=== PATIENT | male | born 1970 | race Caucasian/White ===

== ENCOUNTER 2023-11-05 14:41 | Observation (INO) | payer OTHER ==
[2023-11-05 15:15] VITALS: BMI 21.1
[2023-11-05] MEDS ORDERED: ACETAMINOPHEN 1000 MG/100 ML BAG IVPB ONE (16:56)
[2023-11-05] MEDS ORDERED: LACTATED RINGERS SOLUTION 1000 ML INFUS.BAG IV ONE (16:56)
[2023-11-05] MEDS ORDERED: AZITHROMYCIN IVPB 500 MG in DEXTROSE 5%-WATER - 250 ML IVPB ONE (17:17)
[2023-11-05] MEDS ORDERED: CEFTRIAXONE 1,000 MG in DEXTROSE 5%-WATER - 50 ML IVPB ONE (17:17)
[2023-11-05] MEDS ORDERED: AZITHROMYCIN IVPB 500 MG/250 ML BAG IVPB ONE (17:48)
[2023-11-05] MEDS ORDERED: ACETAMINOPHEN INJECTION 100 ML IVPB ONE (17:48)
[2023-11-05] MEDS ORDERED: CEFTRIAXONE 1 GM/50 ML BAG ONE (17:48)
[2023-11-05 18:05] LABS: INR 1.48 (0.83-1.09); PROTHROMBIN TIME (PATIENT) 17.1 SEC (9.7-13.0)
[2023-11-05 18:06] LABS: BASO % 0.1 % (0-2.0); HEMATOCRIT 38.8 % (35.4-49); HEMOGLOBIN 12.9 GM/dL (11.7-16.9); LYMPH % 14.2 % (8-40); MCH 30.1 pg (25.7-33.7); MCHC 33.3 g/dl (32.0-35.9); MEAN CELL VOLUME 90.4 fl (80-96); MEAN PLT VOLUME 8.4 fl (7.5-11.1); MONO % 7.7 % (3.8-10.2); PLATELET COUNT 199 10^3/uL (134-434); RBC 4.29 M/mm3 (4.00-5.60); RDW 13.8 % (11.9-15.9); WHITE BLOOD COUNT 5.9 K/mm3 (4.0-10.0)
[2023-11-05 18:08] LABS: ACTIVATED PTT 36.1 SECONDS (25.2-36.5)
[2023-11-05 18:12] LABS: POTASSIUM 3.7 mmol/L (3.5-5.1)
[2023-11-05 18:14] LABS: ALBUMIN 3.7 g/dl (3.4-5.0); BLOOD UREA NITROGEN 21.7 mg/dL (7-18); CALCIUM 8.8 mg/dL (8.5-10.1)
[2023-11-05 18:17] LABS: CREATININE 0.9 mg/dL (0.55-1.3)
[2023-11-05 18:19] LABS: BILIRUBIN,TOTAL 0.6 mg/dL (0.2-1)
[2023-11-05] MEDS ORDERED: VANCOMYCIN 1,000 MG in DEXTROSE 5%-WATER - 250 ML IVPB ONE (18:38)
[2023-11-05] MEDS ORDERED: VANCOMYCIN 1 GRAM (PRE-DOCKED) 1,000 MG/250 ML BAG IVPB ONE (18:43)
[2023-11-05 18:47] LABS: EPI CELLS 8 /uL (0-25.1); HYALINE CASTS 0 /uL (0-3.1); PH,URINE 5.5 (5.0-8.0); URINE APPEARANCE CLEAR; URINE BACTERIA 7 /uL (0-1359); URINE BILIRUBIN NEGATIVE (NEGATIVE); URINE COLOR DK YELLOW; URINE GLUCOSE (UA) NEGATIVE (NEGATIVE); URINE KETONE NEGATIVE (NEGATIVE); URINE LEUK ESTERASE NEGATIVE (NEGATIVE); URINE NITRITE NEGATIVE (NEGATIVE); URINE PROTEIN 3+ (NEGATIVE); URINE WBC 11 /uL (0-25.8)
[2023-11-05 19:28] LABS: URINE RBC 40.4 /uL (0-23.9); YEAST NONE SEEN (NEGATIVE)
[2023-11-05] MEDS ORDERED: ALBUTEROL SO4 2.5/IPRATROPIUM 0.5 INH SOL 3 ML VIAL.NEB. NEB ONE ×2 (21:26→23:40)
[2023-11-05] MEDS ORDERED: DEXTROSE 5%-LACTATED RINGERS 1,000 ML IV SCH (22:15)
[2023-11-05] MEDS ORDERED: predniSONE 20 MG TABLET (UD) PO ONE (22:46)
[2023-11-05] MEDS: DEXTROSE 5%-NORMAL SALINE 1,000 ML IV SCH (23:36)
[2023-11-05] MEDS: ALBUTEROL SO4 2.5/IPRATROPIUM 0.5 INH SOL 3 ML VIAL.NEB. NEB SCH (23:36)
[2023-11-05] MEDS: OSELTAMIVIR PHOSPHATE 75 MG CAPSULE PO SCH (23:36)
[2023-11-05] MEDS ORDERED: predniSONE 20 MG TABLET (UD) ONE (23:40)
[2023-11-05] MEDS ORDERED: OSELTAMIVIR PHOSPHATE 75 MG CAPSULE ONE (23:41)
[2023-11-06] MEDS ORDERED: ALBUTEROL SO4 HFA INHALER IH ONE (00:17)
[2023-11-06] MEDS ORDERED: ALBUTEROL SO4 2.5/IPRATROPIUM 0.5 INH SOL 3 ML VIAL.NEB. NEB ONE ×3 (02:37→20:10)
[2023-11-06] MEDS: ALBUTEROL SO4 2.5/IPRATROPIUM 0.5 INH SOL 3 ML VIAL.NEB. NEB SCH ×5 (04:40→20:09)
[2023-11-06 08:24] LABS: HEMATOCRIT 29.7 % (35.4-49); HEMOGLOBIN 10.3 GM/dL (11.7-16.9); MCH 31.2 pg (25.7-33.7); MCHC 34.6 g/dl (32.0-35.9); MEAN CELL VOLUME 90.2 fl (80-96); MEAN PLT VOLUME 8.1 fl (7.5-11.1); PLATELET COUNT 156 10^3/uL (134-434); RDW 13.7 % (11.9-15.9); WHITE BLOOD COUNT 4.4 K/mm3 (4.0-10.0)
[2023-11-06 08:36] LABS: POTASSIUM 3.9 mmol/L (3.5-5.1)
[2023-11-06 08:38] LABS: CALCIUM 8.3 mg/dL (8.5-10.1)
[2023-11-06 08:39] LABS: BLOOD UREA NITROGEN 21.2 mg/dL (7-18)
[2023-11-06 08:41] LABS: MAGNESIUM 1.9 mg/dL (1.8-2.4)
[2023-11-06 08:42] LABS: CREATININE 0.7 mg/dL (0.55-1.3)
[2023-11-06 08:44] LABS: BILIRUBIN,TOTAL 0.4 mg/dL (0.2-1); TOT PROT 6.2 g/dl (6.4-8.2)
[2023-11-06 08:58] LABS: ALBUMIN 2.7 g/dl (3.4-5.0)
[2023-11-06] MEDS ORDERED: methaDONE HCL 40 MG DISPERSABLE TABLET ONE (09:29)
[2023-11-06] MEDS ORDERED: methaDONE HCL 10 MG TABLET ONE (09:30)
[2023-11-06] MEDS: ENOXAPARIN NA (PORCINE) 40 MG/0.4 ML DISP.SYRIN SQ SCH ×2 (11:00→11:10)
[2023-11-06] MEDS: OSELTAMIVIR PHOSPHATE 75 MG CAPSULE PO SCH ×2 (11:00→22:58)
[2023-11-06] MEDS: predniSONE 20 MG TABLET (UD) PO SCH (11:00)
[2023-11-06] MEDS ORDERED: predniSONE 20 MG TABLET (UD) ONE (11:02)
[2023-11-06] MEDS ORDERED: ALBUTEROL SO4 HFA INHALER IH PRN (11:10)
[2023-11-06] MEDS ORDERED: AZITHROMYCIN IVPB 250 MG in DEXTROSE 5%-WATER - 250 ML IVPB SCH (17:30)
[2023-11-06] MEDS: CEFTRIAXONE 1 GM in DEXTROSE 5%-WATER - 50 ML IVPB SCH (17:32)
[2023-11-06] MEDS: DOXYCYCLINE HYCLATE 100 MG CAPSULE PO SCH (17:52)
[2023-11-06] MEDS ORDERED: DOXYCYCLINE HYCLATE 100 MG CAPSULE PO ONE (17:55)
[2023-11-06] MEDS ORDERED: OSELTAMIVIR PHOSPHATE 75 MG CAPSULE ONE (22:43)
[2023-11-07] MEDS: DEXTROSE 5%-NORMAL SALINE 1,000 ML IV SCH (00:26)
[2023-11-07] MEDS ORDERED: ALBUTEROL SO4 2.5/IPRATROPIUM 0.5 INH SOL 3 ML VIAL.NEB. NEB PRN (02:30)
[2023-11-07] MEDS ORDERED: DOXYCYCLINE HYCLATE 100 MG CAPSULE PO ONE ×2 (09:50→18:56)
[2023-11-07] MEDS ORDERED: OSELTAMIVIR PHOSPHATE 75 MG CAPSULE ONE ×2 (09:50→21:29)
[2023-11-07] MEDS ORDERED: ENOXAPARIN NA (PORCINE) 40 MG/0.4 ML DISP.SYRIN SQ ONE (09:50)
[2023-11-07] MEDS ORDERED: predniSONE 20 MG TABLET (UD) ONE (09:50)
[2023-11-07] MEDS ORDERED: CEFTRIAXONE 1 GM/50 ML BAG ONE (09:51)
[2023-11-07] MEDS: ENOXAPARIN NA (PORCINE) 40 MG/0.4 ML DISP.SYRIN SQ SCH (10:05)
[2023-11-07] MEDS: predniSONE 20 MG TABLET (UD) PO SCH (10:05)
[2023-11-07] MEDS: CEFTRIAXONE 1 GM in DEXTROSE 5%-WATER - 50 ML IVPB SCH (10:05)
[2023-11-07] MEDS: DOXYCYCLINE HYCLATE 100 MG CAPSULE PO SCH ×2 (10:05→18:55)
[2023-11-07] MEDS: OSELTAMIVIR PHOSPHATE 75 MG CAPSULE PO SCH ×2 (10:05→21:38)
[2023-11-07] MEDS ORDERED: methaDONE HCL 40 MG DISPERSABLE TABLET ONE (11:36)
[2023-11-07] MEDS ORDERED: methaDONE HCL 10 MG TABLET ONE (11:37)
[2023-11-07] MEDS ORDERED: DOXYCYCLINE HYCLATE 100 MG VIAL ONE (18:31)
[2023-11-08] MEDS ORDERED: methaDONE HCL 40 MG DISPERSABLE TABLET ONE (06:07)
[2023-11-08] MEDS ORDERED: methaDONE HCL 10 MG TABLET ONE (06:08)
[2023-11-08 07:05] VITALS: BP 152/81; PULSE 46; RESP 18; TEMP 97.5
[2023-11-08 09:07] LABS: BASO % 0.2 % (0-2.0); HEMATOCRIT 29.9 % (35.4-49); HEMOGLOBIN 9.9 GM/dL (11.7-16.9); MCH 30.2 pg (25.7-33.7); MCHC 33.1 g/dl (32.0-35.9); MEAN CELL VOLUME 91.3 fl (80-96); MEAN PLT VOLUME 9.5 fl (7.5-11.1); MONO % 8.7 % (3.8-10.2); NEUT % 76.1 % (42.8-82.8); PLATELET COUNT 206 10^3/uL (134-434); RBC 3.28 M/mm3 (4.00-5.60); RDW 13.6 % (11.9-15.9); WHITE BLOOD COUNT 7.8 K/mm3 (4.0-10.0)
[2023-11-08] MEDS ORDERED: CEFTRIAXONE 1 GM/50 ML BAG ONE (09:44)
[2023-11-08] MEDS ORDERED: UMECLIDINIUM/VILANTEROL (ANORO) 62.5/25 MCG INHALER IH SCH (10:00)
[2023-11-08 10:06] LABS: TOT PROT 6.3 g/dl (6.4-8.2)
[2023-11-08 10:10] LABS: ALBUMIN 2.7 g/dl (3.4-5.0)
[2023-11-08 10:11] LABS: BLOOD UREA NITROGEN 26.9 mg/dL (7-18); CALCIUM 8.8 mg/dL (8.5-10.1); CREATININE 0.8 mg/dL (0.55-1.3)
[2023-11-08 10:12] LABS: BILIRUBIN,TOTAL 0.2 mg/dL (0.2-1)
[2023-11-08] MEDS: DOXYCYCLINE HYCLATE 100 MG CAPSULE PO SCH (10:15)
[2023-11-08] MEDS: CEFTRIAXONE 1 GM in DEXTROSE 5%-WATER - 50 ML IVPB SCH (10:15)
[2023-11-08] MEDS: ENOXAPARIN NA (PORCINE) 40 MG/0.4 ML DISP.SYRIN SQ SCH (10:15)
[2023-11-08] MEDS: OSELTAMIVIR PHOSPHATE 75 MG CAPSULE PO SCH (10:15)
[2023-11-08] MEDS: predniSONE 20 MG TABLET (UD) PO SCH (10:15)
== END 2023-11-08 17:27 | disposition home or self-care (01) ==
LOC: JER 14:41 → JERBED 17:22
PROVIDERS: ADMIT Internal Medicine; ATTEND Psychiatry & Neurology Pain Medicine
PROC: 3E0F7GC Introduction of Other Therapeutic Substance into Respiratory Tract, Via Natural or Artificial Opening (ICD-10-PCS; principal; 2023-11-05)
PROC: 3E033NZ Introduction of Analgesics, Hypnotics, Sedatives into Peripheral Vein, Percutaneous Approach (ICD-10-PCS; 2023-11-05)
PROC: 3E03329 Introduction of Other Anti-infective into Peripheral Vein, Percutaneous Approach (ICD-10-PCS; 2023-11-05)
PROC: 3E03329 Introduction of Other Anti-infective into Peripheral Vein, Percutaneous Approach (ICD-10-PCS; 2023-11-05)
PROC: 3E0337Z Introduction of Electrolytic and Water Balance Substance into Peripheral Vein, Percutaneous Approach (ICD-10-PCS; 2023-11-05)
DX: J09.X1 Influenza due to identified novel influenza A virus with pneumonia (principal); I10 Essential (primary) hypertension; R07.9 Chest pain, unspecified; F19.10 Other psychoactive substance abuse, uncomplicated; R07.89 Other chest pain; E16.2 Hypoglycemia, unspecified; Z29.89 Encounter for other specified prophylactic measures; Z87.891 Personal history of nicotine dependence
CPT/HCPCS: 0241U-QW; 36415; 71045-TC-FY; 80053; 81003; 83735; 84100; 84484; 85025; 85027; 85610; 85730; 87070; 87081; 87086; 87205; 87899; 93005; 93010; 94640; 96361; 96365; 96367; 96375; 99285-25; G0378